=== PATIENT | male | born 1995 | race Caucasian/White ===

== ENCOUNTER 2017-01-26 21:06 | Emergency (ER) | payer BC, MEDICAID ==
[~2017-01-26] VITALS: Ht 182.9 cm; Wt 97.5 kg
[~2017-01-26 21:06] MED LIST: NO MEDS
[2017-01-26] MEDS ORDERED: KETOROLAC 60 MG/2 ML VIAL (J1885) IM ONE (22:15)
[2017-01-26 22:37] VITALS: BP 140/77
--- NOTE | 2017-01-27 01:46 | REP ---
Clinical: Pain. Trauma. Technique: AP and axial views of the right clavicle. Findings: No acute fracture. Acromioclavicular and sternoclavicular joints appear intact and normal. Surrounding soft tissues are unremarkable. Impression: Normal clavicle radiographs. No acute fracture or separation noted. Signed by Alex Martinez MD 01/27/2017 01:38 A
== END 2017-01-26 22:46 | disposition home or self-care (01) ==
LOC: M ED 22:34
DX: S43.51XA Sprain of right acromioclavicular joint, initial encounter (principal); W01.198A Fall on same level from slipping, tripping and stumbling with subsequent striking against other object, initial encounter; Y92.830 Public park as the place of occurrence of the external cause; Y93.65 Activity, lacrosse and field hockey; Y99.9 Unspecified external cause status
CPT/HCPCS: 73000; 96372; 99282; J1885

== ENCOUNTER 2019-09-20 17:21 | Emergency (ER) | payer OTHER, MEDICAID ==
[~2019-09-20] VITALS: Ht 185.4 cm; Wt 82.7 kg
[2019-09-20] MEDS ORDERED: ACET-683 PO (17:30)
[2019-09-20] MEDS ORDERED: IBUPROFEN 800 MG TAB PO ONE (17:45)
[2019-09-20] MEDS ORDERED: ONDANSETRON 4MG/2ML VIAL (J2405) IV ONE (18:30)
[2019-09-20] MEDS ORDERED: NS 1,000 ML IV ONE ×2 (18:30→20:00)
[2019-09-20 18:40] LABS: INFLUENZA A AMPLIFICATION NEGATIVE (NEGATIVE); INFLUENZA B AMPLIFICATION NEGATIVE (NEGATIVE)
[2019-09-20 18:45] LABS: BASO % 0.2 % (0.0-1.0); HEMATOCRIT 45.2 % (42.0-52.0); HEMOGLOBIN 14.5 g/dl (13.5-17.5); LYMPH # 0.6 10^3/uL (1.5-5.0); LYMPH % 3.8 % (24.0-44.0); MEAN CORPUSCULAR HEMOGLOBIN 30.8 pg (27.0-33.0); MEAN CORPUSCULAR HGB CONC 32.1 g/dl (32.0-36.5); MONO # 1.1 10^3/uL (0.0-0.8); MONO % 6.5 % (0.0-5.0); NEUTROPHILS # 14.7 10^3/uL (1.5-8.5); NEUTROPHILS % 88.8 % (36.0-66.0); PLATELET COUNT, AUTOMATED 229 10^3/uL (150-450); RED BLOOD COUNT 4.71 10^6/uL (4.30-6.10); WHITE BLOOD COUNT 16.6 10^3/uL (4.0-10.0)
[2019-09-20 19:18] LABS: MONO REFLEX EBV COMP POSITIVE (NEGATIVE)
[2019-09-20] MEDS ORDERED: diphenhydrAMINE INJ 50MG/ML VIAL (J1200) IV STA (19:54)
[2019-09-20] MEDS ORDERED: MAGICMW SSP (19:57)
[2019-09-20] MEDS ORDERED: KETOROLAC 30 MG/ML VIAL (J1885) IV ONE (20:00)
[2019-09-20] MEDS ORDERED: METOCLOPRAMIDE INJ 10MG/2ML VIAL (J2765) IV ONE (20:00)
--- NOTE | 2019-09-20 20:08 | REP ---
HISTORY: Cough and fever. FINDINGS: The superior mediastinal structures are midline. The cardiac silhouette is unremarkable in size, shape and position. The diaphragmatic surfaces of the lungs are regular and the costophrenic angles are clear. The pulmonary olivares are clear. The imaged osseous structures are intact. IMPRESSION: There is no acute cardiopulmonary disease. Electronically Signed by Paco Nagel DO 09/21/2019 02:42 P
[2019-09-20 21:09] VITALS: BP 110/54
== END 2019-09-20 21:25 | disposition home or self-care (01) ==
LOC: M ED 17:21
DX: B27.90 Infectious mononucleosis, unspecified without complication (principal); R50.9 Fever, unspecified; R07.0 Pain in throat; Z88.2 Allergy status to sulfonamides
CPT/HCPCS: 71046; 80047; 85025; 86308; 87502; 87880; 96361; 96374; 96375; 99284; J1200; J1885; J2405; J2765

== ENCOUNTER → 2024-07-04 | Outpatient (CLI) | payer BC ==
[~2024-07-04] MED LIST changes: +ACET-683 PO; +MAGICMW SSP
[2024-07-04 18:49] LABS: BASO % 0.4 % (0.0-1.0); EOS # 0.1 10^3/uL (0.0-0.5); EOS % 1.7 % (0.0-3.0); HEMATOCRIT 43.2 % (42.0-52.0); HEMOGLOBIN 14.2 g/dl (13.5-17.5); LYMPH # 2.5 10^3/uL (1.5-5.0); LYMPH % 32.8 % (24.0-44.0); MEAN CORPUSCULAR HEMOGLOBIN 30.5 pg (27.0-33.0); MEAN CORPUSCULAR HGB CONC 32.9 g/dl (32.0-36.5); MEAN CORPUSCULAR VOLUME 92.9 fl (80.0-96.0); MONO # 0.6 10^3/uL (0.0-0.8); MONO % 7.6 % (2.0-8.0); NEUTROPHILS # 4.4 10^3/uL (1.5-8.5); NEUTROPHILS % 57.2 % (36.0-66.0); PLATELET COUNT, AUTOMATED 283 10^3/uL (150-450); RED BLOOD COUNT 4.65 10^6/uL (4.30-6.10); WHITE BLOOD COUNT 7.7 10^3/uL (4.0-10.0)
[2024-07-04 19:19] LABS: ALBUMIN 4.6 G/DL (3.2-5.2); ALKALINE PHOSPHATASE 50 U/L (46-116); ALT/SGPT 33 U/L (7.0-40); AST/SGOT 37 U/L (<34); BILIRUBIN,TOTAL 0.7 MG/DL (0.3-1.2); BLOOD UREA NITROGEN 16 MG/DL (9-23); CALCIUM LEVEL 9.5 MG/DL (8.5-10.1); CARBON DIOXIDE LEVEL 31 MMOL/L (20-31); CHLORIDE LEVEL 106 MMOL/L (98-107); CHOLESTEROL LEVEL 118 MG/DL (<200); CHOLESTEROL RISK RATIO 2.68 (<5); CREATININE FOR GFR 1.11 MG/DL (0.70-1.30); GLOMERULAR FILTRATION RATE > 60.0 (>60); GLUCOSE, FASTING 82 MG/DL (60-100); HDL CHOLESTEROL 43.9 MG/DL (>40); LDL CHOLESTEROL 63.3 MG/DL (<100); NON-HDL-C 74.1 MG/DL; POTASSIUM SERUM 4.5 MMOL/L (3.5-5.1); SODIUM LEVEL 140 MMOL/L (136-145); TOTAL PROTEIN 7.6 G/DL (5.7-8.2); TRIGLYCERIDES LEVEL 54 MG/DL (<150)
== END ==
LOC: M PLALAB 15:12
PROVIDERS: ATTEND Family Medicine
DX: Z00.00 Encounter for general adult medical examination without abnormal findings (principal); R10.9 Unspecified abdominal pain

== ENCOUNTER → 2024-09-19 | Outpatient (CLI) | payer BC | LOC: M WHC 07:39 | PROVIDERS: ATTEND Family Medicine | DX: N60.02 Solitary cyst of left breast (principal) | CPT/HCPCS: 76642; 77066; G0279 ==

== ENCOUNTER → 2024-11-10 | Outpatient (CLI) | payer BC ==
[2024-11-10 11:55] LABS: THYROID STIMULATING HORMONE 1.486 uIU/ML (0.55-4.78)
== END ==
LOC: M LAB 10:36
PROVIDERS: ATTEND Family Medicine
DX: N62 Hypertrophy of breast (principal)